=== PATIENT | male | born 1995 | race Caucasian/White ===

== ENCOUNTER 2021-01-22 11:56 | Outpatient (REF) | payer OTHER, SELFPAY ==
--- NOTE | ~2021-01-22 | XR_ITS ---
EXAMINATION: XR LUMBOSACRAL SPINE CLINICAL INFORMATION: Pain COMPARISON: None TECHNIQUE: Three views of the lumbosacral spine. FINDINGS: The vertebral bodies and posterior elements are normal. The disc spaces are preserved and the vertebral alignment is normal. The paraspinal soft tissues are normal. XR/XR lumbar spine 2-3V IMPRESSION: Unremarkable examination.
[2021-01-22 12:28] LABS: Hematocrit 44.7 % (42-52); Hemoglobin 14.2 g/dl (14.0-18.0); Mean Corpuscular HGB Conc 31.8 g/dl (31.0-36.0); Mean Corpuscular Hemoglobin 27.2 pg (27.0-33.0); Mean Corpuscular Volume 85.6 fL (80-98); Mean Platelet Volume 11.2 fL (9.4-12.4); Platelet Count 206 X10*3/uL (160-400); Red Blood Count 5.22 X10*6/uL (4.60-5.80); Red Cell Distribution Width 13.7 % (11.0-16.0); White Blood Count 4.9 X10*3/uL (4.8-10.8)
[2021-01-22 13:07] LABS: Alanine Aminotransferase 13 U/L (0-40); Alkaline Phosphatase 39 U/L (39-117); Anion Gap 10 (12-20); Aspartate Amino Transferase 19 U/L (5-37); Bilirubin Total 1.2 mg/dL (0.0-1.0); Blood Urea Nitrogen 10 mg/dL (9-16); Calcium 9.8 mg/dL (8.4-10.2); Carbon Dioxide 30 mmol/L (22-29); Chloride 106 mmol/L (96-108); Estimated Glomerular Filt Rate > 60; Glucose Fasting 97 mg/dL (60-99); Sodium 142 mmol/L (135-145); Total Protein 7.5 g/dL (6.5-8.0)
[2021-01-22 13:28] LABS: TSH reflex Free T4 0.96 uIU/mL (0.32-4.0)
== END 2021-01-22 11:57 | disposition home or self-care (01) ==
LOC: HO.LAB 11:56
PROVIDERS: PCP Physician Assistant; Visit Provider Physician Assistant
DX: M51.9 Unspecified thoracic, thoracolumbar and lumbosacral intervertebral disc disorder (principal); I10 Essential (primary) hypertension; K21.9 Gastro-esophageal reflux disease without esophagitis; Z13.1 Encounter for screening for diabetes mellitus; Z13.29 Encounter for screening for other suspected endocrine disorder
CPT/HCPCS: 36415; 72100; 80053; 84443; 85027

== ENCOUNTER 2021-01-24 | Outpatient (REF) | payer OTHER, SELFPAY | END 2021-01-24 00:01 | disposition home or self-care (01) | LOC: HO.LNP | PROVIDERS: Visit Provider Physician Assistant | DX: K21.9 Gastro-esophageal reflux disease without esophagitis (principal) | CPT/HCPCS: 87338 ==

== ENCOUNTER 2021-03-29 07:15 | Emergency (ER) | payer OTHER, SELFPAY ==
--- NOTE | ~2021-03-29 | XR_ITS ---
EXAMINATION: XR HAND, LEFT CLINICAL INFORMATION: Left ring finger injury. Rule out fracture COMPARISON: None TECHNIQUE: PA, lateral, and oblique views of the left hand. FINDINGS: The bones and soft tissues are normal. No fracture. Alignment is anatomic. Joint spaces are maintained. No erosions or soft tissue calcifications. XR/XR hand LT 2V IMPRESSION: Unremarkable left hand.
[2021-03-29 07:19] VITALS: BP 122/74; PULSE 70; RESP 16; TEMP 36.7; O2SAT 100; BMI 17.2
--- NOTE | 2021-03-29 08:04 | ED_ITS ---
HPI - Extremity Problem General Chief complaint: Extremity Injury, Upper Stated complaint: finger pain from door slam Time Seen by Provider: 03/29/21 07:52 Source: patient Mode of arrival: ambulatory Limitations: no limitations History of Present Illness HPI Narrative: 25 years old male came in for evaluation of left ring finger injury. The door was closed on left ring finger yesterday, pain is localized to the di stal left ring finger, hematoma under the nail, patient feels pressure in the distal finger, feeling numbness sensation and pressure in the distal part of the finger. Patient is right handed. Related Data Previous Rx's Medication Instructions Recorded metronidazole 0.75 % topical gel 1 appl TOPICAL BEDTIME 14 Days #45 01/22/21 g sucralfate 100 mg/mL oral 10 ml PO BID 10 Days #200 ml 01/22/21 suspension omeprazole 20 mg capsule,delayed 20 mg PO DAILY #30 cap 02/16/21 release Allergies Allergy/AdvReac Type Severity Reaction Status Date / Time cat dander Allergy Unknown Unknown Verified 01/22/21 11:05 Review of Systems Review of Systems: All other systems are reviewed and are negative Constitutional: Reports as per HPI and Reports no additional constitutional complaints Eyes: Reports as per HPI and Reports no additional eye complaints Reports system reviewed and no additional complaints, except as documented Cardiovascular: Reports as per HPI and Reports no additional cardiovascular com plaints Respiratory: Reports as per HPI and Reports no additional respiratory complaints Gastrointestinal: Reports as per HPI and Reports no additional gastrointestinal complaints Genitourinary: Reports no additional female genitourinary complaints Musculoskeletal: Reports no additional musculoskeletal complaints Skin/Breast: Reports system reviewed and no additional complaints, except as docu Psychiatric: Reports no additional psychiatric complaints Endocrine: Reports no additional endocrine complaints Hematologic/Lymphatic: Reports no additional hematologic/lymphatic complaints Allergic/Immunologic: Reports no additional allergic/immunologic complaints Reports system reviewed and no additional complaints, except as documented and Reports Abnormal speech present [facility] Past Medical History Surgical History No pertinent past surgical history [place] teeth removed Family History Family History Mother No problems noted. Maternal Grandfather Skin cancer Acute CVA (cerebrovascular accident) Brother Anemia Sister In good health Social History Social History Alcohol intake: former Smoking Status: Never smoker Advance Directives: No Advance Directives Information Provided: Yes Physical Exam Vital Signs: Vital Signs: Last Vital Signs Temp 98.1 F 03/29/21 07:19 Pulse 70 03/29/21 07:19 Resp 16 03/29/21 07:19 BP 122/74 03/29/21 07:19 Pulse Ox 100 03/29/21 07:19 Body Mass Index 17.2 Vital signs have been reviewed as appeared to be correct. Blood pressure normal. Heart rate normal. Respiration rate normal. Temperature normal. Oxygen saturation normal. Appearance: Alert. Oriented X3. No acute distress. Head: Normal external exam. Normocephalic. Atraumatic. No Patton signs noted. No raccoon eyes noted Eyes: PERRLA. EOMI. Conjunctiva and sclera normal. Eyelids normal. ENT: TM's Normal. Pharynx normal. Uvula midline. Moist mucous membranes. No trismus noted. No drooling noted. No muffled voice noted. Neck: Normal inspection. Neck supple. FROM. No adenopathy. Thyroid Normal. No meningeal signs. No neck mass noted. CVS: Normal heart rate and rhythm. Heart sound normal. No murmurs noted. Pulses normal throughout. Respiratory: No respiratory distress. Painless inspiration. Breath sounds normal. No wheezes/rales/rhonchi noted. Chest nontender. No accessory muscle usage noted or decreased air movement noted. Abdomen: Soft and nontender. Bowel sounds normal in all 4 quadrants. No distention noted. No organomegaly noted. No visible injury noted. Back: No CVA tenderness. Full range of motion noted. Skin: Skin warm and dry. Normal skin color. Normal skin turgor. No rashes/lesions/lacerations noted. Extremities: Left ring finger with subungual hematoma, no deformity, neurovascularly intact. Neuro: Oriented X 3. No motor deficit. No sensory deficit. Reflexes normal. Course Course Course Narrative: Patient feels better after nail trephination. Procedures Nail Trephination Time out: Yes Location (finger): left and ring Sterile prep: betadine Method of drainage: nail cautery Procedure successful: Yes Patient tolerated procedure: No Complications MDM - Extremity (Nontraumatic) Imaging Data Left hand x-ray: Radiologist's impression: No acute fracture Discharge Plan Discharge Clinical Impression: Subungual hematoma of finger of left hand Qualifiers: Encounter type: initial encounter Qualified Code(s): S60.10XA - Contusion of unspecified finger with damage to nail, initial encounter Patient Disposition: Home, Self-Care Instructions: Subungual Hematoma (ED) Prescriptions: No Action omeprazole 20 mg capsule,delayed release(DR/EC) 20 mg PO DAILY Qty: 30 RF: 2 sucralfate [Carafate] 100 mg/mL suspension 10 ml PO BID 10 Days Qty: 200 RF: 0 metronidazole 0.75 % gel 1 appl topical BEDTIME 14 Days Qty: 45 RF: 0 Referrals: Laurel Fair MD [Primary Care Provider] - 2 weeks
== END 2021-03-29 09:29 | disposition home or self-care (01) ==
PROVIDERS: Emergency Provider Emergency Medicine; PCP Internal Medicine
DX: S60.142A Contusion of left ring finger with damage to nail, initial encounter (principal); W23.1XXA Caught, crushed, jammed, or pinched between stationary objects, initial encounter; Y93.9 Activity, unspecified; Y92.9 Unspecified place or not applicable; Y99.9 Unspecified external cause status
CPT/HCPCS: 11740; 73120; 99283; 99284

== ENCOUNTER 2021-07-09 10:58 | Emergency (ER) | payer OTHER, SELFPAY ==
--- NOTE | ~2021-07-09 | XR_ITS ---
EXAMINATION: XR FOOT, RIGHT CLINICAL INFORMATION: Pain following trauma 8 days ago. COMPARISON: None TECHNIQUE: AP, lateral, and oblique views of the right foot. FINDINGS: No acute fracture or dislocation. No joint space narrowing or marginal osteophytes. No osseous erosion. No abnormal soft tissue calcification. XR/XR foot RT min 3V IMPRESSION: No acute fracture or dislocation.
[2021-07-09 11:13] VITALS: BP 98/65; PULSE 73; RESP 18; TEMP 36.6; O2SAT 99
--- NOTE | 2021-07-09 11:58 | ED.LOWEXIN ---
HPI - Extremity Injury (Lower) General Chief Complaint: Extremity Injury, Lower Stated Complaint: foot pain Time Seen by Provider: 07/09/21 11:57 Source: patient History of Present Illness HPI Narrative: This is a 26-year-old male who had kicked a ball about 9 days ago with his right foot and since then has had pain to the distal foot proximal to the 4th toe with some pain also to the medial foot near the arch. Patient denies any numbness. He has not noted any swelling. Denies any ankle pain. Pain is mild to moderate, aching, worse with walking Related Data Previous Rx's Medication Instructions Recorded metronidazole 0.75 % topical gel 1 appl TOPICAL BEDTIME 14 Days #45 01/22/21 g sucralfate 100 mg/mL oral 10 ml PO BID 10 Days #200 ml 01/22/21 suspension (Carafate) omeprazole 20 mg capsule,delayed 20 mg PO DAILY #30 cap 02/16/21 release Allergies Allergy/AdvReac Type Severity Reaction Status Date / Time cat dander Allergy Unknown Unknown Verified 07/09/21 11:13 Review of Systems Constitutional: Constitutional: Reports as per HPI Musculoskeletal: Comments: Foot pain Neurologic: Denies Sensory deficit (Neuro) and Denies paresthesias PMF Past Medical History Surgical History No pertinent past surgical history [place] teeth removed Family History Family History Mother No problems noted. Maternal Grandfather Skin cancer Acute CVA (cerebrovascular accident) Brother Anemia Sister In good health Social History Social History Alcohol intake: former Advance Directives: Yes Advance Directives Information Provided: Yes Advance Directives on File: No Physical Exam Vital Signs: Vital Signs: Last Vital Signs Temp 97.9 F 07/09/21 11:13 Pulse 73 07/09/21 11:13 Resp 18 07/09/21 11:13 BP 98/65 07/09/21 11:13 Pulse Ox 99 07/09/21 11:13 Body Mass Index 7.6 Const: General: healthy appearing Neuro: Sensory Exam: No Sensory deficit (Neuro) Extrem: General: Yes normal to inspection Right lower extremity: foot Details: normal capillary refill, normal to inspection, tenderness (Distal foot proximal to 4th toe), vascular exam Details: dorsalis pedis pulse present and other (No swelling, ecchymosis, deformity, tenderness worse with 4th toe movement) MDM - Extremity Injury (Lower) MDM Narrative Medical decision making narrative: Patient with minor injury to right foot over week ago, has some residual pain. No swelling or ecchymosis. Mild tenderness. X-ray negative. Likely sprain versus contusion Imaging Data Foot x-ray: Radiologist's impression: No acute pathology Discharge Plan Discharge Clinical Impression: Sprain of foot, right Patient Disposition: Home, Self-Care Instructions: Foot Sprain (ED) Additional Instructions: Use ibuprofen for pain. Follow-up with primary care physician as needed. Prescriptions: No Action omeprazole 20 mg capsule,delayed release(DR/EC) 20 mg PO DAILY Qty: 30 RF: 2 sucralfate [Carafate] 100 mg/mL suspension 10 ml PO BID 10 Days Qty: 200 RF: 0 metronidazole 0.75 % gel 1 appl topical BEDTIME 14 Days Qty: 45 RF: 0 Stand Alone Forms: Work/School Release Interventions: ED Discharge Assessment Last Done: 07/09/21 12:42 Discharge Date/Time: 07/09/21 12:42
== END 2021-07-09 12:42 | disposition home or self-care (01) ==
PROVIDERS: Emergency Provider Emergency Medicine; PCP Internal Medicine
DX: S93.601A Unspecified sprain of right foot, initial encounter (principal); M79.671 Pain in right foot; Y29.XXXA Contact with blunt object, undetermined intent, initial encounter; Y93.6A Activity, physical games generally associated with school recess, summer camp and children; Y92.39 Other specified sports and athletic area as the place of occurrence of the external cause; Y99.9 Unspecified external cause status; Z79.899 Other long term (current) drug therapy
CPT/HCPCS: 73630; 99283

== ENCOUNTER 2021-12-03 09:06 | Emergency (ER) | payer OTHER, SELFPAY ==
--- NOTE | ~2021-12-03 | XR_ITS ---
EXAMINATION: XR HAND, LEFT CLINICAL INFORMATION: Punched ground COMPARISON: None TECHNIQUE: PA, lateral, and oblique views of the left hand. FINDINGS: There is a nondisplaced fracture through the proximal shaft of the fourth metacarpal bone. There is question of a nondisplaced fracture through the shaft of the fifth metacarpal bone. No other fracture is seen. The joint spaces are normal. Soft tissues are normal. XR/XR hand LT min 3V IMPRESSION: Nondisplaced fracture of the proximal shaft of the fourth metacarpal bone and question fifth metacarpal bone.
[2021-12-03 09:42] VITALS: BP 112/63; PULSE 78; RESP 19; TEMP 36.6; O2SAT 98; BMI 18.2
--- NOTE | 2021-12-03 13:54 | ED.EXTPRO ---
HPI - Extremity Problem General Chief complaint: Extremity Injury, Upper Stated complaint: l hand inj Time Seen by Provider: 12/03/21 13:53 Source: patient Mode of arrival: ambulatory Limitations: no limitations History of Present Illness HPI Narrative: 26-year-old male came in for evaluation of left hand injury. Patient's dog made him angry and patient punched the floor with his left hand to scare the dog , patient broke his left 5th metatarsal bone the toe was dislocated patient reduce the fracture himself at home. Patient is right handed. Related Data Previous Rx's Medication Instructions Recorded metronidazole 0.75 % topical gel 1 appl TOPICAL BEDTIME 14 Days #45 01/22/21 g sucralfate 100 mg/mL oral 10 ml PO BID 10 Days #200 ml 01/22/21 suspension (Carafate) omeprazole 20 mg capsule,delayed 20 mg PO DAILY #30 cap 02/16/21 release Allergies Allergy/AdvReac Type Severity Reaction Status Date / Time cat dander Allergy Unknown Unknown Verified 07/09/21 11:13 Review of Systems Review of Systems: All other systems are reviewed and are negative Constitutional: Reports as per HPI and Reports no additional constitutional complaints Eyes: Reports as per HPI and Reports no additional eye complaints Reports system reviewed and no additional complaints, except as documented Cardiovascular: Reports as per HPI and Reports no additional cardiovascular complaints Respiratory: Reports as per HPI and Reports no additional respiratory complaints Gastrointestinal: Reports as per HPI and Reports no additional gastrointestinal complaints Genitourinary: Reports no additional female genitourinary complaints Musculoskeletal: Reports no additional musculoskeletal complaints Skin/Breast: Reports system reviewed and no additional complaints, except as docu Psychiatric: Reports no additional psychiatric complaints Endocrine: Reports no additional endocrine complaints Hematologic/Lymphatic: Reports no additional hematologic/lymphatic complaints Allergic/Immunologic: Reports no additional allergic/immunologic complaints Reports system reviewed and no additional complaints, except as documented and Reports Abnormal speech present [facility] Past Medical History Surgical History No pertinent past surgical history [place] teeth removed Family History Family History Mother No problems noted. Maternal Grandfather Skin cancer Acute CVA (cerebrovascular accident) Brother Anemia Sister In good health Social History Social History Alcohol intake: former Advance Directives: No Advance Directives Information Provided: Yes Physical Exam Vital Signs: Vital Signs: Last Vital Signs Temp 98 F 12/03/21 09:42 Pulse 78 12/03/21 09:42 Resp 19 12/03/21 09:42 BP 112/63 12/03/21 09:42 Pulse Ox 98 12/03/21 09:42 BMI result Body Mass Index 18.2 Vital signs have been reviewed as appeared to be correct. Blood pressure normal. Heart rate normal. Respiration rate normal. Temperature normal. Oxygen saturation normal. Appearance: Alert. Oriented X3. No acute distress. Head: Normal external exam. Normocephalic. Atraumatic. No Patton signs noted. No raccoon eyes noted Eyes: PERRLA. EOMI. Conjunctiva and sclera normal. Eyelids normal. ENT: TM's Normal. Pharynx normal. Uvula midline. Moist mucous membranes. No trismus noted. No drooling noted. No muffled voice noted. Neck: Normal inspection. Neck supple. FROM. No adenopathy. Thyroid Normal. No meningeal signs. No neck mass noted. CVS: Normal heart rate and rhythm. Heart sound normal. No murmurs noted. Pulses normal throughout. Respiratory: No respiratory distress. Painless inspiration. Breath sounds normal. No wheezes/rales/rhonchi noted. Chest nontender. No accessory muscle usage noted or decreased air movement noted. Abdomen: Soft and nontender. Bowel sounds normal in all 4 quadrants. No distention noted. No organomegaly noted. No visible injury noted. Back: No CVA tenderness. Full range of motion noted. Skin: Skin warm and dry. Normal skin color. Normal skin turgor. No rashes/lesions/lacerations noted. Extremities: Left hand exam: Neurovascular intact, tenderness over left 5th metatarsal area with some swelling, but no deformity of his hip off. Neuro: Oriented X 3. Cranial nerve exam: II-XII are grossly intact No motor deficit. No sensory deficit. Reflexes normal. Course Course Course Narrative: Assessment and plan. 26-year-old male right handed came in with left 5th metatarsal fracture, originally was displaced but patient was able to reduce it at home in his own, will apply on the gutter splint and follow-up with ortho. MDM - Extremity (Nontraumatic) Imaging Data Left hand x-ray: Attestation: I personally reviewed and interpreted this imaging study as follows: Radiologist's impression: Nondisplaced fracture of the proximal shaft of the fourth metacarpal bone and question fifth metacarpal bone. Discharge Plan Discharge Clinical Impression: Fracture of metacarpal base of left hand, closed Patient Disposition: Home, Self-Care Instructions: Hand Fracture (ED) Additional Instructions: Apply ice to the left hand, take ibuprofen if needed for pain or swelling, keep the splint on, follow-up with Orthopedic. Prescriptions: No Action omeprazole 20 mg capsule,delayed release(DR/EC) 20 mg PO DAILY Qty: 30 RF: 2 sucralfate [Carafate] 100 mg/mL suspension 10 ml PO BID 10 Days Qty: 200 RF: 0 metronidazole 0.75 % gel 1 appl topical BEDTIME 14 Days Qty: 45 RF: 0 Referrals: Tito Sotelo MD [Physician] - 2 days Stand Alone Forms: Work/School Release
--- NOTE | 2021-12-03 14:26 | PC.NURSE ---
JAJA REES PLACED BY PCT CHECKED BY DR BOWENS.
== END 2021-12-03 14:28 | disposition home or self-care (01) ==
PROVIDERS: Emergency Provider Emergency Medicine; PCP Internal Medicine
DX: S62.355A Nondisplaced fracture of shaft of fourth metacarpal bone, left hand, initial encounter for closed fracture (principal); W22.09XA Striking against other stationary object, initial encounter; Y93.89 Activity, other specified; Y92.039 Unspecified place in apartment as the place of occurrence of the external cause; Y99.9 Unspecified external cause status
CPT/HCPCS: 29125; 73130; 99283

== ENCOUNTER → 2021-12-10 13:55 | Outpatient (BNVA) | payer OTHER, SELFPAY | PROVIDERS: PCP Internal Medicine; Visit Provider Physician Assistant | DX: S62.311A Displaced fracture of base of second metacarpal bone, left hand, initial encounter for closed fracture (principal) | CPT/HCPCS: 29085; 99202 ==

== ENCOUNTER 2021-12-23 10:46 | Outpatient (REF) | payer OTHER, SELFPAY ==
--- NOTE | ~2021-12-23 | XR_ITS ---
EXAMINATION: XR HAND, LEFT CLINICAL INFORMATION: Pain COMPARISON: Prior study 12/03/2021 TECHNIQUE: Frontal lateral oblique views of the hand were obtained. FINDINGS: Redemonstration of nondisplaced hairline fracture at the base of the fourth metacarpal bone, the fracture does not involve articular surface. There are no other fractures. Bone alignments are satisfactory. Intercarpal, carpometacarpal, metacarpophalangeal joints are normal. Surrounding soft tissue unremarkable. XR/XR hand LT min 3V IMPRESSION: Unhealed nondisplaced hairline fracture of the proximal diaphysis fourth metacarpal.
== END 2021-12-23 10:47 | disposition home or self-care (01) ==
LOC: HO.HOSX 10:46
PROVIDERS: PCP Internal Medicine; Visit Provider Physician Assistant
DX: S62.317D Displaced fracture of base of fifth metacarpal bone, left hand, subsequent encounter for fracture with routine healing (principal)
CPT/HCPCS: 29085; 73130; 99212

== ENCOUNTER 2021-12-31 15:33 | Emergency (ER) | payer OTHER, SELFPAY ==
[2021-12-31 15:38] VITALS: BP 121/71; PULSE 88; RESP 18; TEMP 37.4; O2SAT 99; BMI 17.3
[2021-12-31 16:13] LABS: COVID-19 Test Negative (Negative)
[2021-12-31 16:42] LABS: Strep A Nucleic Acid Negative (Negative)
--- NOTE | 2021-12-31 17:21 | ED.URI ---
HPI - URI/Sore Throat General Chief Complaint: Upper Respiratory Symptoms Stated Complaint: sore throat cant speak Time Seen by Provider: 12/31/21 17:13 Source: patient Mode of arrival: ambulatory Limitations: no limitations History of Present Illness HPI Narrative: 26-year-old male healthy here with sore throat for 2 days which is worsened with swallowing. Patient also has had fever with max temp of 100.8 degrees at home. No runny nose, cough, difficulty breathing or shortness breath. Related Data Previous Rx's Medication Instructions Recorded metronidazole 0.75 % topical gel 1 appl TOPICAL BEDTIME 14 Days #45 01/22/21 g sucralfate 100 mg/mL oral 10 ml PO BID 10 Days #200 ml 01/22/21 suspension (Carafate) omeprazole 20 mg capsule,delayed 20 mg PO DAILY #30 cap 12/08/21 release amoxicillin 500 mg tablet 500 mg PO BID #20 tab 12/31/21 ibuprofen 600 mg tablet 600 mg PO Q6H PRN #20 tab 12/31/21 prednisone 20 mg tablet 40 mg PO DAILY #10 tab 12/31/21 Allergies Allergy/AdvReac Type Severity Reaction Status Date / Time cat dander Allergy Unknown Unknown Verified 12/10/21 14:00 Review of Systems Review of Systems: Yes all other systems are reviewed and are negative Constitutional: Constitutional: Reports no additional constitutional complaints, Denies body ache(s), Denies chills, Reports fever(s), Denies headache(s) and Denies weakness Eyes: Eyes: Reports no additional eye complaints and Denies change in vision ENT: Reports system reviewed and no additional complaints, except as documented, Denies dizziness, Denies headache(s), Denies nasal congestion, Denies nasal discharge, Denies neck pain and Reports sore throat Cardiovascular: Cardiovascular: Reports no additional cardiovascular complaints, Denies chest pain, Denies leg edema and Denies dyspnea Respiratory: Respiratory: Reports no additional respiratory complaints, Denies cough and Denies dyspnea Gastrointestinal: Gastrointestinal: Reports no additional gastrointestinal complaints, Denies abdominal pain, Denies diarrhea, Denies nausea and Denies vomiting Genitourinary: Genitourinary: Denies urinary incontinence Musculoskeletal: Musculoskeletal: Reports no additional musculoskeletal complaints, Denies back pain, Denies arthralgias, Denies joint swelling, Denies neck pain, Denies numbness and Denies tingling Integumentary/Breasts: Skin/Breast: Reports system reviewed and no additional complaints, except as docu and Denies rash Neurologic: Reports system reviewed and no additional complaints, except as documented, Denies Abnormal speech present, Denies dizziness, Denies headache(s), Denies numbness, Denies tingling and Denies weakness PMFSH Past Medical History Attestation statement: The following information was validated with the patient. Source: old records reviewed and nursing notes reviewed Surgical History No pertinent past surgical history [place] teeth removed Family History Family History Mother No problems noted. Maternal Grandfather Skin cancer Acute CVA (cerebrovascular accident) Brother Anemia Sister In good health Social History Social History Housing: Other Housing Other:: rents a room Alcohol intake: former Patient Tobacco Use Status: Never used Tobacco Second Hand Smoke Exposure: Yes Substance Use Type: Marijuana Advance Directives: No Advance Directives Information Provided: No service: No Current occupational status: employed Current occupation: rt handed/[employer] Physical Exam Vital Signs: Vital Signs: Last Vital Signs Temp 99.3 F 12/31/21 15:38 Pulse 88 12/31/21 15:38 Resp 18 12/31/21 15:38 BP 121/71 12/31/21 15:38 Pulse Ox 99 12/31/21 15:38 BMI result Body Mass Index 17.3 Const: General: cooperative, healthy appearing, comfortable and no acute distress Orientation/consciousness: patient oriented x3 Limitations: no limitations HENMT: Head: Yes normal to inspection Ears: hearing grossly normal bilaterally General nose exam: Normal external nose present Face and sinus: Yes normal facial exam Mouth: Normal oral and palatal mucosa present Throat: Yes posterior oropharynx normal, Yes uvula midline and Yes abnormal tonsil (Bilateral tonsillar swelling with exudate) Eyes: General: appearance normal, both eyes and all related structures Pupils: Equal, round and reactive pupils present Neck: Neck: Yes normal visual inspection, Yes full ROM, Yes no lymphadenopathy and Yes no meningeal signs Chest: Chest palpation & inspection: normal inspection of the chest Resp: Effort & Inspection: normal respiratory effort Auscultation: clear to auscultation bilaterally Cardio: Rate: regular rate Rhythm: regular rhythm Peripheral pulses: Peripheral pulses 2+ throughout GI: Inspection: Yes normal to inspection Palpation (GI): Soft to palpation and nontender Auscultation: normal bowel sounds Back/Spine/Pelvis: Thoracic/Lumbar Spine: thoracic and lumbar spine normal to inspection Skin: General skin exam: no rashes or lesions noted Neuro: General: patient oriented x3, no meningeal signs, no focal motor deficits and normal sensation to monofilament Cranial nerves: Yes Equal, round and reactive pupils present Cognition (Neuro): normal cognition Speech: No Abnormal speech present Gait exam (Neuro): Normal gait present Motor exam (neuro): 5/5 motor strength present throughout Extrem: General: Yes normal to inspection Course Course Course Narrative: 26-year-old male here with sore throat with pain for swallowing the last 2 days with a fever up to 100.8 at home. Exam is consistent with strep pharyngitis. The patient is tolerating his secretions with no difficulty. His COVID screen and strep screen are negative however his exam is consistent with strep pharyngitis will so will treat with course of amoxicillin. No signs of peritonsillar abscess. Reviewed worrisome signs and symptoms of when to return to the emergency department. Comfortable discharge home. MDM - URI/Sore Throat Medical Records Attestation: I reviewed the patient's medical records. Lab Data Attestation: I reviewed the patient's lab results. Labs: Lab Results 12/31/21 12/31/21 Range/Units 15:47 16:25 COVID-19 (PANFILO) Negative (Negative) COVID-19 Clin Com See Note S. pyogenes GrpA MARTA Negative (Negative) Discharge Plan Discharge Clinical Impression: Pharyngitis Patient Disposition: Home, Self-Care Instructions: Pharyngitis (ED) Additional Instructions: COVID test is negative Saltwater gargles Increase fluids, rest Prescriptions: New amoxicillin 500 mg tablet 500 mg PO BID Qty: 20 0RF prednisone 20 mg tablet 40 mg PO DAILY Qty: 10 0RF ibuprofen 600 mg tablet 600 mg PO Q6H PRN (Reason: pain) Qty: 20 0RF No Action sucralfate [Carafate] 100 mg/mL suspension 10 ml PO BID 10 Days Qty: 200 0RF metronidazole 0.75 % gel 1 appl topical BEDTIME 14 Days Qty: 45 0RF omeprazole 20 mg capsule,delayed release(DR/EC) 20 mg PO DAILY Qty: 30 2RF Referrals: Laurel Fair MD [Primary Care Provider] - 1 week (as needed) Stand Alone Forms: Work/School Release Interventions: ED Discharge Assessment Last Done: 12/31/21 18:29 Discharge Date/Time: 12/31/21 18:31
[2021-12-31] MEDS: Ketorolac Tromethamine 60 MG/2 ML VIAL IM (18:11)
== END 2021-12-31 18:31 | disposition home or self-care (01) ==
LOC: HO.ED 17:22
PROVIDERS: Emergency Provider Emergency Medicine; PCP Internal Medicine
DX: J02.9 Acute pharyngitis, unspecified (principal); Z20.822 Contact with and (suspected) exposure to COVID-19
CPT/HCPCS: 87635; 87651; 96372; 99284; J1885

== ENCOUNTER 2022-01-01 10:46 | Emergency (ER) | payer OTHER, SELFPAY ==
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
[2022-01-01 10:58] VITALS: BP 129/88; BP 130/80; PULSE 122; PULSE 86; RESP 18; TEMP 36.7; O2SAT 100; O2SAT 99; BMI 16.2
== END 2022-01-01 11:44 | disposition home or self-care (01) ==
PROVIDERS: Emergency Provider Emergency Medicine
DX: S40.022A Contusion of left upper arm, initial encounter (principal); S70.02XA Contusion of left hip, initial encounter; M79.602 Pain in left arm; M25.552 Pain in left hip; V43.52XA Car driver injured in collision with other type car in traffic accident, initial encounter; Y93.9 Activity, unspecified; Y92.410 Unspecified street and highway as the place of occurrence of the external cause; Y99.9 Unspecified external cause status; Z79.899 Other long term (current) drug therapy
CPT/HCPCS: 73502; 99283

== ENCOUNTER 2022-01-03 17:37 | Emergency (ER) | payer OTHER, SELFPAY ==
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
[2022-01-03 17:53] VITALS: BP 113/68; PULSE 70; RESP 16; TEMP 36.7; O2SAT 98; BMI 16.7
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
[2022-01-03] MEDS: hydrOXYzine HCL 50 MG TABLET PO (19:45)
== END 2022-01-03 20:33 | disposition home or self-care (01) ==
PROVIDERS: Emergency Provider Emergency Medicine
DX: F41.9 Anxiety disorder, unspecified (principal); S80.02XA Contusion of left knee, initial encounter; V49.9XXA Car occupant (driver) (passenger) injured in unspecified traffic accident, initial encounter; Y93.9 Activity, unspecified; Y92.9 Unspecified place or not applicable; Y99.9 Unspecified external cause status
CPT/HCPCS: 73564; 99283

== ENCOUNTER 2022-01-07 07:49 | Outpatient (REF) | payer OTHER, SELFPAY ==
--- NOTE | ~2022-01-07 | XR_ITS ---
EXAMINATION: XR HAND, LEFT CLINICAL INFORMATION: Pain in left hand COMPARISON: None TECHNIQUE: 4 views of the left hand. FINDINGS: The bones and soft tissues are normal. No fracture. Alignment is anatomic. Joint spaces are maintained. No erosions or soft tissue calcifications. XR/XR hand LT min 3V IMPRESSION: Unremarkable left hand exam.
== END 2022-01-07 07:50 | disposition home or self-care (01) ==
LOC: HO.HOSX 07:49
PROVIDERS: Visit Provider Physician Assistant
DX: S62.317D Displaced fracture of base of fifth metacarpal bone, left hand, subsequent encounter for fracture with routine healing (principal)
CPT/HCPCS: 73130; 99212

== ENCOUNTER 2022-01-20 15:42 | Outpatient (REF) | payer OTHER, SELFPAY ==
--- NOTE | ~2022-01-20 | XR_ITS ---
EXAMINATION: XR ELBOW, LEFT CLINICAL INFORMATION: Left elbow pain. COMPARISON: None TECHNIQUE: AP, lateral, and oblique views of the left elbow. FINDINGS: No acute fracture or dislocation. No joint space narrowing or marginal osteophytes. No osseous erosion. No abnormal soft tissue calcification. No joint effusion. Mild soft tissue swelling overlying the posterior aspect of the olecranon, which could represent olecranon bursitis in the appropriate clinical setting. XR/XR elbow LT min 3V IMPRESSION: Mild soft tissue swelling posterior to the olecranon, which could indicate olecranon bursitis in the appropriate clinical setting.
== END 2022-01-20 15:43 | disposition home or self-care (01) ==
LOC: HO.XRAY 15:42
PROVIDERS: PCP Physician Assistant; Visit Provider Nurse Practitioner Family
DX: M25.522 Pain in left elbow (principal); M54.9 Dorsalgia, unspecified; M25.562 Pain in left knee
CPT/HCPCS: 73080